=== PATIENT | female | born 1955 | race Caucasian/White ===

== ENCOUNTER → 2020-10-16 09:19 | Outpatient (CLI) | payer MEDICARE, SELFPAY ==
[2020-10-16 13:42] LABS: Chloride 106 mmol/L (98-107); Sodium 141 mmol/L (136-145)
[2020-10-16 13:43] LABS: Potassium 3.9 mmoL/L (3.5-5.1)
[2020-10-16 13:44] LABS: Basophils # 0.1 K/mm3 (0-0.2); Basophils % 1.1 % (0.1-2.0); Eosinophils # 0.2 K/mm3 (0.0-0.4); Eosinophils % 2.7 % (0.1-12.0); Hematocrit 45.5 % (37.0-47.0); Hemoglobin 14.6 g/dL (12.2-16.2); Lymphocytes # 2.6 K/mm3 (0.7-4.5); Lymphocytes % 29.6 % (10-50); Mean Corpuscular HGB Conc 32.2 g/dL (31.8-35.4); Mean Corpuscular Hemoglobin 27.3 pg (27.0-31.2); Mean Corpuscular Volume 84.9 fl (81-99); Mean Platelet Volume 10.1 fl (7.4-10.4); Monocytes # 0.4 K/mm3 (0.1-1.0); Neutrophils # 5.3 K/mm3 (1.8-7.8); Neutrophils % 61.6 % (37.0-80.0); Platelet Count 396 K/mm3 (142-424); Red Blood Count 5.36 M/mm3 (4.20-5.40); Red Cell Distribution Width 15.7 % (11.5-17.5); White Blood Count 8.7 K/mm3 (4.8-10.8)
[2020-10-16 13:45] LABS: Alanine Aminotransferase 26 U/L (12-78); Albumin Level 4.1 g/dl (3.5-5.0); Albumin/Globulin Ratio 1.1 (1.1-1.8); Alkaline Phosphatase 91 U/L (38-126); Anion Gap 12.9 mEq/L (5-15); Aspartate Amino Transferase 34 U/L (14-36); Bilirubin,Total 0.4 mg/dl (0.2-1.3); Blood Urea Nitrogen 11 mg/dl (7-17); Carbon Dioxide 26 mmol/L (22.0-30.0); Estimated Glomerular Filt Rate 83 ml/min (>60); GFR (African American) 101 ML/MIN (>60); Globulin 3.7 g/dL (1.3-3.2); Total Protein,Serum 7.8 g/dl (6.3-8.2)
[2020-10-16 13:46] LABS: Calcium 9.6 mg/dl (8.4-10.2); Chol/HDL Ratio 3.2 (1-3.5); Cholesterol 175 mg/dl (140-200); Glucose 86 mg/dl (74-100); HDL Cholesterol 55 mg/dl (40-60); Triglycerides 193 mg/dl (30-150); VLDL Cholesterol 39 mg/dL (0-40)
[2020-10-16 13:57] LABS: Direct LDL Cholesterol 72.76 mg/dL (100-129)
== END ==
PROVIDERS: PCP Nurse Practitioner Family; Visit Provider Nurse Practitioner Family
DX: K50.914 Crohn's disease, unspecified, with abscess (principal); K65.1 Peritoneal abscess; D64.9 Anemia, unspecified; Z00.00 Encounter for general adult medical examination without abnormal findings; E78.1 Pure hyperglyceridemia
CPT/HCPCS: 36415; 80053; 80061; 85025

== ENCOUNTER → 2021-01-22 09:22 | Outpatient (CLI) | payer MEDICARE, SELFPAY ==
[2021-01-22 13:45] LABS: Basophils # 0.1 K/mm3 (0-0.2); Eosinophils # 0.3 K/mm3 (0.0-0.4); Eosinophils % 2.5 % (0.1-12.0); Hematocrit 42.5 % (37.0-47.0); Hemoglobin 13.5 g/dL (12.2-16.2); Lymphocytes # 2.4 K/mm3 (0.7-4.5); Lymphocytes % 24.3 % (10-50); Mean Corpuscular HGB Conc 31.7 g/dL (31.8-35.4); Mean Corpuscular Hemoglobin 28.5 pg (27.0-31.2); Mean Corpuscular Volume 90.1 fl (81-99); Monocytes # 0.5 K/mm3 (0.1-1.0); Monocytes % 4.5 % (1.7-9.3); Neutrophils # 6.8 K/mm3 (1.8-7.8); Neutrophils % 67.7 % (37.0-80.0); Platelet Count 354 K/mm3 (142-424); Red Blood Count 4.72 M/mm3 (4.20-5.40); Red Cell Distribution Width 14.6 % (11.5-17.5)
[2021-01-22 13:47] LABS: Alanine Aminotransferase 16 U/L (12-78); Albumin Level 4.2 g/dl (3.5-5.0); Albumin/Globulin Ratio 1.4 (1.1-1.8); Alkaline Phosphatase 66 U/L (38-126); Anion Gap 12.1 mEq/L (5-15); Aspartate Amino Transferase 27 U/L (14-36); Bilirubin,Total 0.3 mg/dl (0.2-1.3); Blood Urea Nitrogen 14 mg/dl (7-17); Calcium 9.3 mg/dl (8.4-10.2); Carbon Dioxide 25 mmol/L (22.0-30.0); Chloride 107 mmol/L (98-107); Estimated Glomerular Filt Rate 72 ml/min (>60); GFR (African American) 87 ML/MIN (>60); Glucose 86 mg/dl (74-100); Potassium 4.1 mmoL/L (3.5-5.1); Sodium 140 mmol/L (136-145); Total Protein,Serum 7.2 g/dl (6.3-8.2)
== END ==
PROVIDERS: Visit Provider Internal Medicine
DX: K50.919 Crohn's disease, unspecified, with unspecified complications (principal)
CPT/HCPCS: 36415; 80053; 85025; 86140

== ENCOUNTER → 2021-04-07 07:43 | Outpatient (CLI) | payer MEDICARE, SELFPAY ==
--- NOTE | 2021-04-07 07:50 | CT_ITS ---
PROCEDURE: CT LUNG SCREENING CLINICAL INDICATION: H/O NICOTINE DEPENDENCE Current smoker 53 pack year smoking history No prior COMPARISON: CR ABDACU ABD ACUTE(MUL VIEWS) from 08/14/2017 TECHNIQUE: The exam was performed on a GE Light Speed [address] scanner using 2.90 mGy CTDI. A low dose helical CT CHEST was performed on a multi-detector scanner. All CT scans at the facility use one or more dose reduction, viz: automated exposure control, ma/kV adjustment per patient size (including targeted exams where dose is matched to indication, i.e. head), or iterative reconstruction technique. The LDCT was performed in a facility that meets the criteria for the screening program. Data regarding this exam was submitted to ACR which is an approved registry. The order for this exam indicates that it came as a result of a lung cancer screening counseling shard decision-making visit that included all the elements required of such a visit including smoking cessation. The radiologist interpreting this exam meets the CMS criteria for the LDCT lung cancer screening program. The exam is reported using the Lung-RADS classification scale and reported to the ACR registry. NOTE: This study was performed for the specific purposes of lung cancer screening and is not an alternative to diagnostic chest CT. RADIATION DOSE: CTDI vol(CT dose Index-volume) = 2.90mG DLP (Dose Length Product) = 96.38 mGcm FINDINGS: COPD. Old granulomatous disease. Scattered areas of scarring and/or atelectatic change. 6 x 2 mm by lobular nodular opacity left upper lobe. 7 x 4 mm noncalcified nodule extreme left lung base within the left lower lobe anteriorly. OTHER FINDINGS: Coronary artery calcifications. Minimal pericardial thickening. 13 mm hypodensity lateral aspect left hepatic lobe segment 2 indeterminate. IMPRESSION: Lung-RADS Category 3 Probably Benign regarding left lower lobe and left upper lobe nodules. Follow-up: [address] Chest without and with contrast; PET/CT may be used when there is a greater than or equal to a 8 mm solid component. Suggest ultrasound of the liver to determine if the lesion in the left hepatic lobe is cystic or solid. Dictated by: Aidan Wen MD 04/13/2021 06:36 Aidan Wen MD in [facility] 04/13/2021 06:36
--- NOTE | 2021-04-07 07:51 | XR_ITS ---
PROCEDURE: XR DEXA AXIAL SKELETON CLINICAL HISTORY: POST MENOPAUSAL COMPARISON: No exams were available for comparison FINDINGS: The right hip BMD is 0.540 with a T-score of -2.8. The left hip BMD is 0.490 with a T-score of -3.2. The lumbar spine BMD is 0.939 with a T-score of -1.0. IMPRESSION: This patient is considered osteoporotic according to the World Health Organization criteria. Fracture risk is high. Treatment is advised. Based on these results a follow-up exam is recommended in 1 year. Dictated by: Aidan Wen MD 04/08/2021 08:41 Aidan Wen MD in [facility] 04/08/2021 08:41
== END ==
PROVIDERS: PCP Nurse Practitioner Family; Visit Provider Internal Medicine Adolescent Medicine
DX: Z13.820 Encounter for screening for osteoporosis (principal); Z78.0 Asymptomatic menopausal state; Z87.891 Personal history of nicotine dependence; Z12.2 Encounter for screening for malignant neoplasm of respiratory organs
CPT/HCPCS: 71271; 77080

== ENCOUNTER → 2021-04-23 07:46 | Outpatient (CLI) | payer MEDICARE, SELFPAY ==
--- NOTE | 2021-04-23 07:59 | US_ITS ---
PROCEDURE: US LIVER CLINICAL INDICATION: LIVER LESION COMPARISON: CT CT LUNG SCREENING from 04/07/2021 FINDINGS: PANCREAS: The visualized pancreas is unremarkable. The tail is partially obscured. LIVER: Focal anechoic lesion is noted in the left lobe of the liver measuring 1.5 centimeters. Homogeneous echogenicity. No intrahepatic biliary ductal dilatation evident. There is appropriate direction of blood flow within a non dilated portal vein RIGHT KIDNEY: Unremarkable. Normal size and echogenicity. No hydronephrosis GALLBLADDER: Multiple gallstones noted with posterior acoustic shadowing. There is evidence of a focal hyperechoic lesion noted in the nondependent portion of the gallbladder, raises the concern for a polyp. The gallbladder wall is mildly thickened measuring up to 0.5 centimeters. No evidence of pericholecystic fluid IMPRESSION: Cholelithiasis noted.. Focal hyperechoic lesion in the non dependent portion of the gallbladder, concerning for polyp. Gallbladder wall thickening. No pericholecystic fluid. Chronic cholecystitis cannot be completely excluded. If clinically indicated, HIDA scan should be considered for. Cyst in the left lobe of liver. Dictated by: Nivia Bustamante 04/23/2021 11:28 Nivia Bustamante in [facility] 04/23/2021 11:28
== END ==
PROVIDERS: PCP Internal Medicine Adolescent Medicine; Visit Provider Nurse Practitioner Family
DX: K76.9 Liver disease, unspecified (principal)
CPT/HCPCS: 76705

== ENCOUNTER → 2021-07-03 09:41 | Outpatient (CLI) | payer MEDICARE, SELFPAY ==
[2021-07-07 15:14] LABS: Calprotectin, Fecal 123 ug/g (0-120)
== END ==
PROVIDERS: Visit Provider Nurse Practitioner Family
DX: K50.90 Crohn's disease, unspecified, without complications (principal)
CPT/HCPCS: 83993; 87045; 87205

== ENCOUNTER → 2021-08-20 09:58 | Outpatient (CLI) | payer MEDICARE, SELFPAY ==
--- NOTE | 2021-08-20 10:03 | XR_ITS ---
PROCEDURE: XR CHEST 2V CLINICAL HISTORY: CROHNS DISEASE COMPARISON: CT CT LUNG SCREENING from 04/07/2021 FINDINGS: The cardiomediastinal silhouette and pulmonary vascularity are within normal limits. The lungs are clear without infiltrates, suspicious nodules, or pleural effusions. Calcified right paratracheal lymph nodes are present. Calcified granuloma right middle lobe. The lungs are otherwise clear. Mild degenerative change thoracic spine. IMPRESSION: No acute findings. Dictated by: Aidan Wen MD 08/20/2021 16:11 Aidan Wen MD in [facility] 08/20/2021 16:11
== END ==
PROVIDERS: PCP Internal Medicine Adolescent Medicine; Visit Provider Nurse Practitioner Family
DX: K50.90 Crohn's disease, unspecified, without complications (principal)
CPT/HCPCS: 71046

== ENCOUNTER 2024-05-25 08:55 | Outpatient (CLI) | payer MEDICARE, SELFPAY ==
--- NOTE | 2024-05-25 08:59 | XR_ITS ---
FINAL REPORT TECHNIQUE: Bone densitometry calculations of the lumbar spine and left hip were obtained. CLINICAL HISTORY: SCREENING COMPARISON: None FINDINGS: Using L1-4, the bone mineral density of the spine is 0.974 g/cm2, corresponding to T-score of -0.7. Using the left hip, the bone mineral density of the femoral neck is 0.518 g/cm2, corresponding to a T-score of -3.0. NOTE: T-score: Standard deviation compared with peak bone mass of young adult mean. *Following the recommendations of the International Society of Bone densitometry, classification of hip BMD is based on the lower of two T-scores; total hip or femoral neck. IMPRESSION: Diminished bone mineral density of the left hip consistent with osteoporosis. Normal bone mineral density of the lumbar spine, however this may be falsely elevated secondary to degenerative change and sclerosis in the lumbar spine. Reviewed, Interpreted and Dictated by Guy Perez MD Transcribed by Fang Berry Authenticated and [facility]
--- NOTE | 2024-05-25 09:00 | CT_ITS ---
FINAL REPORT TECHNIQUE: Thin section axial images were obtained from the lung apices to the upper abdomen by computed tomography. Reformatted images were obtained and reviewed. This study was performed with techniques to keep radiation doses al low as reasonably achievable (ALARA). Individualized dose reduction techniques using automated exposure control or adjustment of mA and/or kV according to the patient's size were employed. CLINICAL HISTORY: SCREENING CURRENT SMOKER 1PPD X55 YEARS COMPARISON: 04/07/2021 FINDINGS: CHEST CT LOW DOSE 69-year-old female, current smoker, [id number] history. CTDI vol (mGy): 2.9 DLP (mGy-cm): 98.47 There is no axillary adenopathy. There is no mediastinal or hilar mass or adenopathy. The heart is normal in size. There is no pericardial or pleural effusion. Lung window images demonstrate the left upper lobe 4 mm nodule seen on the prior CT of 2020 and stable in appearance. There is a 2 mm satellite focus, also stable in appearance. The previously visualized nodule in the left lung base is not visualized on today's exam. There is mild scarring present in the lingula and left lower lobe. Limited images of the upper abdomen reveal a left hepatic lobe cyst, also seen on the prior exam. IMPRESSION: Lung-RADS category 2. Recommend 12 month follow up low dose chest CT. Reviewed, Interpreted and Dictated by Guy Perez MD Transcribed by Fang Berry Authenticated and [facility]
== END 2024-05-25 23:59 | disposition home or self-care (01) ==
LOC: RAD 08:56
PROVIDERS: PCP Nurse Practitioner Family; Visit Provider Nurse Practitioner Family
DX: M85.88 Other specified disorders of bone density and structure, other site (principal); F17.210 Nicotine dependence, cigarettes, uncomplicated
CPT/HCPCS: 71271; 77080